=== PATIENT | female | born 1965 | race Caucasian/White ===

== ENCOUNTER 2018-06-07 06:23 | Day surgery (SDC) | payer BC ==
[~2018-06-07] VITALS: Ht 157.5 cm; Wt 65.8 kg
[2018-06-07 07:36] LABS: HCG,QUAL RESULT NEGATIVE (NEGATIVE)
[2018-06-07] MEDS ORDERED: NEOSTIGMINE METHYLSULFATE 1 MG/ML, 10 ML VIAL IVP ONE (08:35)
[2018-06-07] MEDS ORDERED: DEXAMETHASONE SOD PHOSPHATE 4 MG/ML VIAL IVP ONE (08:35)
[2018-06-07] MEDS ORDERED: BUPIVACAINE /PF 0.25% 30 ML VIAL INJ ONE (08:35)
[2018-06-07] MEDS ORDERED: LIDOCAINE/EPI 1% 1:100000 20 ML VIAL INJ ONE ×2 (08:35→09:06)
[2018-06-07] MEDS ORDERED: LR 1,000 ML IV.SOLN IV ONE (08:35)
[2018-06-07] MEDS ORDERED: ROCURONIUM BROMIDE 10 MG/ML (ZEMURON) IV ONE (08:35)
[2018-06-07] MEDS ORDERED: PROPOFOL 200MG/ 20ML VIAL (DIPRIVAN) IV ONE (08:35)
[2018-06-07] MEDS ORDERED: MIDAZOLAM HCL 5 MG/5 ML VIAL IVP ONE (08:35)
[2018-06-07] MEDS ORDERED: fentaNYL CITRATE 250 MCG/5 ML AMP IV ONE (08:35)
[2018-06-07] MEDS ORDERED: SEVOFLURANE 15 MIN GAS INH ONE (08:35)
[2018-06-07] MEDS ORDERED: EPINEPHrine 1 MG/ML AMP IV ONE (08:35)
[2018-06-07] MEDS ORDERED: ONDANSETRON HCL 4 MG/2 ML VIAL IVP ONE (08:35)
[2018-06-07] MEDS ORDERED: NS IRRIG SOLN 1000 ML IR ONE (08:35)
[2018-06-07] MEDS ORDERED: BACITRACIN ZINC 15 GM TOPICAL OINTMENT TP ONE (08:35)
[2018-06-07] MEDS ORDERED: GLYCOPYRROLATE 0.2 MG/ML VIAL IJ ONE (08:35)
[2018-06-07] MEDS ORDERED: LR 1,000 ML IV SCH (09:17)
[2018-06-07] MEDS ORDERED: METOCLOPRAMIDE HCL 10 MG/2 ML VIAL IVP PRN (09:30)
[2018-06-07] MEDS ORDERED: MORPHINE 4 MG/ML INJ. SYRINGE IVP PRN ×3 (09:30)
[2018-06-07] MEDS ORDERED: MORPHINE 4 MG/ML INJ. SYRINGE ONE (10:12)
[2018-06-07 11:20] VITALS: BP_SYST 136
== END 2018-06-07 11:30 | disposition home or self-care (01) ==
LOC: SDS 06:23 → SMU 06:23 → SDS 11:30
PROVIDERS: ATTEND Otolaryngology
DX: J35.01 Chronic tonsillitis (principal)
CPT/HCPCS: 42826; 84703; 88304; 88305; J0171; J1100; J2250; J2270; J2405; J2704; J2710; J3010; J3490 ×2; J7120